=== PATIENT | male | born 1970 | race Caucasian/White ===

== ENCOUNTER 2020-04-06 19:16 | Inpatient (IN) | payer OTHER ==
[~2020-04-06] VITALS: Ht 193 cm; Wt 95.3 kg
[~2020-04-06 19:16] MED LIST: KEPPRA500 MG PO
[2020-04-06 20:01] LABS: HEMOGLOBIN 15.4 gm/dl (14.0-17.5); RED BLOOD COUNT 4.86 M/UL (4.20-5.50); WHITE BLOOD COUNT 10.7 K/UL (4.5-11.0)
[2020-04-06 20:20] LABS: BUN/CREATININE RATIO 9 (0-10)
[2020-04-06] MEDS ORDERED: LEXAPRO TAB 1010 MG PO (22:05)
[2020-04-06] MEDS ORDERED: PRINIVIL20 MG PO (22:05)
[2020-04-06] MEDS ORDERED: MAGNESIUM400 MG PO (22:06)
[2020-04-06] MEDS ORDERED: PROCARDIA XL30 MG PO (22:07)
[2020-04-07 03:56] LABS: HEMOGLOBIN 12.7 gm/dl (14.0-17.5); RED BLOOD COUNT 4.03 M/UL (4.20-5.50)
[2020-04-07 04:10] LABS: BUN/CREATININE RATIO 14 (0-10)
[2020-04-07] MEDS ORDERED: HYDROCODON-ACE1 EAC2 PO ×2 (15:46→15:52)
[2020-04-08 10:19] LABS: HEMOGLOBIN 11.6 gm/dl (14.0-17.5); RED BLOOD COUNT 3.64 M/UL (4.20-5.50)
[2020-04-08 10:55] LABS: BUN/CREATININE RATIO 27 (0-10)
[2020-04-09] MEDS ORDERED: CRUTCH1 EACH MC (13:53)
[2020-04-09] MEDS ORDERED: THIAMINE HCL100 MG PO (13:53)
[2020-04-09] MEDS ORDERED: ULTRA-LIGHT RO1 EACH MC (13:53)
== END 2020-04-09 15:22 | disposition home health service (06) | DRG 493 ==
LOC: ER1 19:16 → M/S 21:14 → CDU 21:14 → M/S 23:30
PROVIDERS: Emergency Medicine; Internal Medicine; Orthopaedic Surgery; ADMIT Internal Medicine
PROC: 0QSG04Z Reposition Right Tibia with Internal Fixation Device, Open Approach (ICD-10-PCS; principal; 2020-04-07 12:00)
DX: S82.301A Unspecified fracture of lower end of right tibia, initial encounter for closed fracture (principal); S22.069A Unspecified fracture of T7-T8 vertebra, initial encounter for closed fracture; S82.401A Unspecified fracture of shaft of right fibula, initial encounter for closed fracture; F10.129 Alcohol abuse with intoxication, unspecified; W10.2XXA Fall (on)(from) incline, initial encounter; Y92.9 Unspecified place or not applicable; Z88.6 Allergy status to analgesic agent; Z20.822 Contact with and (suspected) exposure to COVID-19; Z95.0 Presence of cardiac pacemaker; R56.9 Unspecified convulsions; I25.10 Atherosclerotic heart disease of native coronary artery without angina pectoris; I10 Essential (primary) hypertension; F17.290 Nicotine dependence, other tobacco product, uncomplicated; S80.812A Abrasion, left lower leg, initial encounter; S80.811A Abrasion, right lower leg, initial encounter; R55 Syncope and collapse; K70.9 Alcoholic liver disease, unspecified; J44.9 Chronic obstructive pulmonary disease, unspecified; I49.5 Sick sinus syndrome; D69.6 Thrombocytopenia, unspecified; F39 Unspecified mood [affective] disorder; N20.0 Calculus of kidney
CPT/HCPCS: 36415; 70450; 71045; 72125; 72128; 72131; 73560; 73590; 73600; 76000; 80048; 80053; 85025; 93005; 94640; 94760; 96374; 96375; 96376; 97116-GP-CQ; 97162; 97530; 97530-GP-CQ; 99285; C1713; G0480; J0171; J0690; J1100; J1170; J1650; J2001; J2250; J2270; J2370; J2405; J2704; J2795; J3010; J3411; J3475; J7030; J7120; U0002